=== PATIENT | female | born 1975 | race Two or more races ===

== ENCOUNTER 2023-03-29 16:48 | Emergency (ER) | payer OTHER ==
[~2023-03-29] VITALS: Ht 172.7 cm; Wt 65.9 kg
[2023-03-29 17:14] VITALS: BP 146/82; PULSE 95; RESP 16; O2SAT 99
[2023-03-29] MEDS ORDERED: IBUP-1456 PO (17:50)
[2023-03-29] MEDS ORDERED: IBUPROFEN 800 MG TAB PO ONE (18:00)
[2023-03-29 18:02] VITALS: TEMP 98.3
== END 2023-03-29 18:02 | disposition home or self-care (01) ==
LOC: ER 16:48 → EDBD 16:48 → ER 18:02
DX: S16.1XXA Strain of muscle, fascia and tendon at neck level, initial encounter (principal); M43.12 Spondylolisthesis, cervical region; Z79.899 Other long term (current) drug therapy; V49.9XXA Car occupant (driver) (passenger) injured in unspecified traffic accident, initial encounter; Y93.I9 Activity, other involving external motion; Y92.89 Other specified places as the place of occurrence of the external cause; Y99.8 Other external cause status
CPT/HCPCS: 72040

== ENCOUNTER 2023-03-30 12:54 | Emergency (ER) | payer OTHER ==
[~2023-03-30] VITALS: Ht 180.3 cm; Wt 75.8 kg
[~2023-03-30 12:54] MED LIST: IBUP-1456 PO
[2023-03-30 14:28] VITALS: BP 126/75; PULSE 100; RESP 17; TEMP 97.8; O2SAT 100
== END 2023-03-30 15:43 | disposition home or self-care (01) ==
LOC: ER 12:54
DX: S16.1XXA Strain of muscle, fascia and tendon at neck level, initial encounter (principal); R51.9 Headache, unspecified; V43.62XA Car passenger injured in collision with other type car in traffic accident, initial encounter; Y93.89 Activity, other specified; Y92.410 Unspecified street and highway as the place of occurrence of the external cause; Y99.8 Other external cause status
CPT/HCPCS: 70450; 72125